=== PATIENT | male | born 1965 | race Caucasian/White ===

== ENCOUNTER 2020-05-16 09:33 | Emergency (ER) | payer MEDICAID ==
[~2020-05-16] VITALS: Ht 172.7 cm; Wt 68.2 kg
--- NOTE | 2020-05-16 09:50 | NUR ---
Pt arrived to bed around 0928 am with extreme sob and unable to respond ,pt bib by michelle from the entrance pt was was able to say 1-2 word and was sob .hx of CHF and COPD,unable to gather any other information. no pulse noted asked by [facility] "can you hear me sir"no response.called Lamar Hernandez,dr rosado at bedside with charge nurse tesfaye ,primary nurse katerina and started the cpr at 09 by morgan [facility] bmv started at 0930 .Rt at the bedside . Unable to start iv by charge nurse tesfaye ,i/o kit at bedside @0935 io started by rosa isela barnes -1st dose of epi admin by rosa isela barnes emt benigno doing the compressions. -pulse checked at 0938 no pulse assytle on monitor . -2nd dose of ep at 0939 BY Rosa Isela rn. -bicarb admin at 0940 BY A belinda rn. -pulse check at 0941 no pulse assytle on monitor by dr rosado -et intubation 8 24 size at teeth by dr rosado with color change rt doing bmv. -unable to get bld from pt for accucheck given d50 at 0944. -3 rd dose of epi given 0944 by rosa isela barnes. -pulse check by dr coronado via ultrasound at 0945 no pulse -4th epi admin at 0946 by rosa isela barnes -pulse check no pulse by dr rosado. called out at [address] rosado .
--- NOTE | 2020-05-16 10:53 | NUR ---
chief meter reader given information on pt and ex number diandra [phone]. chief meter reader stated will call back within an hour. charge nurse aware.
--- NOTE | 2020-05-16 12:15 | NUR ---
naga from [employer] [facility] called to get covid states of pt. stated still awaiting environmental services specialist to call back to determine if coroners case or not.
--- NOTE | 2020-05-16 12:41 | NUR ---
spoke with loss prevention specialist nandini doty and mode to release body to [facility]. stated he will contact family and notify me if another home is preferred.
--- NOTE | 2020-05-16 12:49 | NUR ---
called by nandini doty the blackjack supervisor and ok to release body to [facility]. called [place] stated will send worker out within the next hour. made sure to confirm the patient will be in isolation due to covid positive.
== END 2020-05-16 14:44 | disposition expired ==
LOC: ER 09:34 → EDBD 09:34 → ER 14:44
DX: I46.9 Cardiac arrest, cause unspecified (principal); U07.1 COVID-19
CPT/HCPCS: 31500; 36680; 87635; 94799; 99285; C9803